=== PATIENT | female | born 1980 | race Caucasian/White ===

== ENCOUNTER 2022-02-07 14:26 | Outpatient (RCR) | payer BC, SELFPAY ==
--- OUTSIDE RECORDS SUMMARY | 2022-01-26 14:49 | XMS_ITS | Continuity of Care Document ---
:1980 Author Allergies, Adverse Reactions, Alerts Allergen Type Severity Reaction Last Updated Verified Status Erythromycin Allergy Unknown GI upset July Yes Active 2017 Sulfa drugs Allergy Mild FAMILY HX July Yes Active 2017 Social History Smoking Status Status Start Date End Date Date of Observat ion Never smoked tobacco August 092017 (finding) 3:48pm Observation Status Observation Response Date of Response History provided by Patient September 06, 2016 2 :00pm Where do you live? Own home/apt September 06, 2016 2 :00pm With whom do you live? 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 Crohn's Duodenitis Malnutrition June 24, 2012 Active Abdominal pain Active Nausea after anesthesia Active Headache Active Proteinuria Active S/P hysterectomy Active S/P hysterectomy Active Medications Medication Status Dose Units Route Directions Qty Days Start End Ins tructions Date Date Cholecalcifer Active 1 DROP OR Daily ol (Vitamin D3) PETER Diphenhydrami Active 25 MG PO Every 3 30 Novembe ne Hcl Hours as r 12th, (Benadryl) 25 needed 2012 Mg CAP 12:30pm Infliximab Active 100 MG IV (Remicade Admin Fee) 10 Mg/Ml SOLN Lactobacillus Active 1 CAP OR Daily (Probiotic) CAP Menaquinone-7 Active Unknow PO (Vitamin K2) n Dose Unknown Strength TAB [place]-3 Fatty Active 1 CAP PO Daily Acids (Fish Oil 1000 Mg) 1 Cap CAP Pediatric Active 1 EA PO Daily Multiple Vitamin W/ (Multivitamin /Iron) CHW Vitamins C & Active 1 EA PO Daily E (Vitamin C) CAP Acetaminophen Disconti 500 MG PO Every 6-8 Febru a (Acetaminophe nued Hours ry n Extra 9, Stren) 500 Mg 2016 TAB 9:08am Acetaminophen Disconti 1 TAB PO Every August Febru a /Hydrocodone nued Hours as , ry Bitart needed for 2017 04, (Hydrocodone- For Pain 9:03am 2017 Acetaminophen Rated 4 Or 9:08am ) 7.5 Mg/325 More Mg TAB Albuterol Disconti 2 PUFF INH Every 4 1 Decemb (Proventil nued Hours as er Hfa) 90 Mcg needed , INH 2019 11:21a m Azathioprine Disconti 100 MG PO Daily 90 Decemb nued er 2019 11:21a m Ethinyl Disconti 1 TAB PO Daily 84 December Decemb Estradiol/Peter nued , er spirenone 2017, (Ocella) 3 4:06pm 2019 Mg/0.03 Mg 11:21a TAB m Ethinyl Disconti 1 TAB PO Daily 84 Decemb Estradiol/Peter nued er spirenone , (Ocella) 3 2017 Mg/0.03 Mg 3:06pm TAB Ethinyl Disconti 1 TAB PO Daily October Estradiol/Peter nued , , spirenone 2016 2017 (Ocella) 3 11:12am 4:06pm Mg/0.03 Mg TAB Ethinyl Disconti 1 TAB PO Daily 84 Decembe ua takes Estradiol/Peter nued r 16, ry cont inuously spirenone 2015 04, w/ a (Ocella) 3 4:36pm 2016 withdraw al Mg/0.03 Mg 9:08am bleed q3 mo. TAB Ethinyl Disconti 1 TAB PO Daily Maymb Estradiol/Peter nued , er spirenone 2014, (Ocella) 3 2:01pm 2015 Mg/0.03 Mg 4:36pm TAB Fluconazole Disconti 150 MG PO Once 2 Decembe Decemb 1 po stat, (Diflucan) nued r , er december rep at in 150 Mg TAB 2017, 3 days 3:37pm 2019 11:21a m Fluconazole Disconti 150 MG PO Once 1 October Decemb (Diflucan) nued 9, er 150 Mg TAB 2016, 11:12am 2017 3:06pm Fluconazole Disconti 150 MG PO Once 1 Decembe Decemb (Diflucan) nued r 22nd, er 150 Mg TAB 2016, 11:31am 2017 3:06pm Hydrocodone-A Disconti 1-2 TAB PO Every 4 May b cetaminophen nued Hours , er ([place]couch) 2013, Mg/325 Mg TAB 3:29pm 2013 10:41a m Hydrocodone-A Disconti 1-2 TAB PO Q4-6H Prn 40 Novembe Sep tem cetaminophen nued r 12th, marion (Vicodin 2011 09, 5) 5 12:30pm 2013 Mg/500 Mg TAB 11:23a m Metronidazole Disconti 1 X PV Qhs X5 70 Novembe Oc jesika 1 APPLICATOR Vaginal nued r , r FULL PV (Metrogel 2013, Vaginal) 0.75 11:50am 2015 % GEL 1:25pm Norgestimate- Disconti 1 TAB PO Daily 28 Octobe Ethinyl nued r Estradiol , (Ortho-Cyclen 2014 ) 0.25 2:01pm Mg/0.035 Mg TAB Omeprazole Disconti 20 MG PO Daily 30 Decemb nued er 2019 11:21a m Omeprazole Disconti 20 MG PO Twice Daily 60 Novembe Sept em (Prilosec) 20 nued Before r , marion Mg CAP Meals 2011 09, 12:30pm 2013 11:23a m Ondansetron Disconti 8 MG PO Every 8 Augustua Hcl (Zofran) nued Hours as , ry 8 Mg TAB needed 2017 04, 9:03am 2016 9:08am Ondansetron Disconti 4 MG SL Q8h Prn Septem as needed for Hcl (Zofran nued marion nausea Odt) 4 Mg TAB 2013 11:23a m Ondansetron Disconti 4 MG PO Every 3 30 Novembe Septem Hcl (Zofran nued Hours as r 12th, marion Odt) 4 Mg needed 2011 09, TABEF 12:30pm 2013 11:23a m Prednisone Disconti 40 MG PO Daily Mayb nued 17, er 2014 02, 3:29pm 2013 10:41a m Prednisone Disconti 60 MG PO Daily 60 Novembe Septem nued r 12th, marion 2011 09, 12:30pm 2013 11:23a m Simethicone Disconti 40 MG PO Every 2 30 Novem Septem nued Hours as r 12th, marion needed 2011 09, 12:30pm 2013 11:23a m Advance Directives Advance Directive Response Recorded Date/Time Does Pt have Health Care No May 31, 015 11:17am Directive? Has patient completed a No August 09, 018 3:48pm Health Care Directive? Insurance Providers Guarantor Tabitha Palomo Address [address] [facility] [address] Contact Info. Home Phone: Payer Policy Id Coverage Id Subscriber's Subscriber Id Effective E xpiration Name Date Date Blue [id number] Tabitha Palomo Oh E [id number] Plan of Treatment Future Tests Future scheduled test information is unavailable Pending Tests Pending diagnostic test information is unavailable Future Visits Future appointment information is unavailable Referrals to Other Providers Reason for Referral Start Provider Provider Contact Provider Address Referral Date Information Misbah Heck Work Phone: [facility] AYUSH ALFORD [address] [place] [address] [phone] Future Procedures Future procedure information is unavailable Future Medications Future medication information is unavailable Patient Instructions Acute Headache (ED) Ondansetron (By mouth, Into the mouth) Hysterectomy (DC)
[2022-02-07 11:05] VITALS: BP 105/60; PULSE 77; RESP 16; TEMP 36; O2SAT 96
== END 2022-02-09 23:59 | disposition home or self-care (01) ==
LOC: CCIC 14:26
PROVIDERS: PCP Family Medicine; Visit Provider Internal Medicine Gastroenterology
DX: K50.90 Crohn's disease, unspecified, without complications (principal)
CPT/HCPCS: 96413; 96415; Q5103; J7050

== ENCOUNTER 2022-05-31 11:21 | Outpatient (CLI) | payer BC, SELFPAY | END 2022-05-31 11:22 | disposition home or self-care (01) | LOC: AMB 06-04 17:16 | PROVIDERS: PCP Family Medicine; Visit Provider Emergency Medicine Emergency Medical Services | DX: S89.92XA Unspecified injury of left lower leg, initial encounter (principal); W00.9XXA Unspecified fall due to ice and snow, initial encounter; Y93.K1 Activity, walking an animal; Y92.414 Local residential or business street as the place of occurrence of the external cause | CPT/HCPCS: A0425; A0427 ==

== ENCOUNTER 2022-05-31 11:56 | Emergency (ER) | payer BC, SELFPAY ==
[2022-05-31 12:03] VITALS: BP 102/48; PULSE 57; RESP 18; TEMP 36.5; O2SAT 100; BMI 25.3
--- NOTE | 2022-05-31 12:19 | CRLHL7_ITS ---
For Patients: As a result of the Cures Act, medical imaging exams and procedure reports are released immediately into your electronic medical record. You may view this report before your referring provider. If you have questions, please contact your health care provider. Indication: Fall Comparison: None available. Technique: Standing AP, lateral, and sunrise views of the left knee were obtained Findings: There are subtle cortical fragment seen on the sunrise view arising from the anterolateral aspect of the femur which may represent early degenerative osteophytes versus small avulsion fracture. There is mild medial compartmental degenerative change. There is a small suprapatellar joint effusion. Impression: Subtle cortical fragment seen on the sunrise view arising from the anterolateral aspect of the femur which may represent degenerative changes versus minimal avulsion fracture. Dictated by Julio Zambrano MD @ 05/31/2022 12:46:37 PM (Electronically Signed)
--- NOTE | 2022-05-31 12:20 | ED_ITS ---
HPI - Extremity Injury (Lower) General Chief Complaint: Extremity Pain/Injury, Lower Stated Complaint: Dislocated L Knee Time Seen by Provider: 05/31/22 12:03 History of Present Illness HPI Narrative: This 41-year-old female comes in with an injury to her left knee. She was walking outside and slipped on some ice and states that she dislocated her kneecap laterally. She comes in by ambulance code she was unable to ambulate. She does not report any other injury and did not hit her head or have loss of consciousness. She states that upon arrival here she felt a pop and thinks that her patella spontaneously relocated. She has not had symptoms like this in the past. Related Data Home Medications Medication Instructions Recorded Confirmed Lactobacillus acidophilus PO DAILY 02/03/22 ascorbate calcium (vitamin C) PO DAILY 02/03/22 cholecalciferol (vitamin D3) PO DAILY 02/03/22 diphenhydramine HCl 25 mg capsule 25 mg PO Q3H PRN 02/03/22 05/30/22 (Benadryl) omega 9-dxz-rvc-fish oil 1,000 mg 1 cap PO DAILY 02/03/22 05/30/22 (120 mg-180 mg) capsule (Fish Oil) vitamin K2 PO 02/03/22 multivitamin (Daily Multi-Vitamin 1 tab PO DAILY 05/30/22 05/30/22 tablet) Previous Rx's Medication Instructions Recorded hydrocodone 5 mg-acetaminophen 325 1 tab PO Q4-6H PRN pain #20 tabs 05/31/22 mg tablet Allergies Allergy/AdvReac Type Severity Reaction Status Date / Time erythromycin base Allergy Unknown Gastrointestinal Verified 05/31/22 12:02 Upset Sulfa (Sulfonamide Allergy Unknown Unknown Verified 05/31/22 12:02 Antibiotics) Review of Systems Status of ROS: Reports: 10 or more systems reviewed and unremarkable except as noted in History and below Narrative: Constitutional: No fevers, no weight gain or loss. Eyes: No discharge. No vision changes. HENT: No congestion, no sore throat, no ear pain. Cardiovascular: No chest pain, no palpitations. Respiratory: No shortness of breath, no wheezes, no cough. Gastrointestinal: No abdominal pain, no vomiting, no diarrhea. Genitourinary: No dysuria, no hematuria. Musculoskeletal: Left knee injury as described above. Skin: No rashes, no pruritis. Neurological: No dizziness, weakness, sensory change, speech change. Endo/Heme/Allergies: No bruising or bleeding. No polydipsia. Pysch: no suicidality, no anxiety, no insomnia. All other systems reviewed and are negative. [facility] Medical History (Updated 05/31/22 @ 13:10 by aDvid Villarreal MD) Crohn disease Social History Smoking Status: Never smoker Do you use any of these nicotine containing products: None Second hand tobacco smoke exposure: No How often do you have a drink containing alcohol: monthly or less How many standard drinks containing alcohol do you have on a typical day: 1 or 2 How often do you have six or more drinks on one occasion: Never AUDIT-C Alcohol total score: 1 Non-prescribed substance use: denies use service: No Exam Narrative: Exam Narrative: Constitutional: Well-developed, well-nourished, no acute distress. HEENT: Normocephalic, atraumatic. Neck: Normal range of motion. Nontender. Supple. Heart: Intact distal pulses. Lungs: No chest discomfort. No wheezes, rhonchi, or rales. Abdomen: Nontender. Back: Normal range of motion. Extremities: Left knee pain. No effusion or deformity is identified. She does have tenderness on the medial aspect of the patella and this is distinctly worse with stressing the patella laterally. Skin: Intact. No rash. Warm. No erythema or pallor. Neurologic: No altered sensation. No weakness. Alert and oriented. Psychiatric: No suicidality. No anxiety or depression. No insomnia. Nursing notes and vitals signs are reviewed. Const: Vital Signs, click to edit/add: Vital Signs - 24 hr 05/31/22 12:03 Temperature 97.7 F Pulse Rate [Pulse Oximeter] 57 L Respiratory Rate 18 Blood Pressure [Le ft Upper Arm] 102/48 L Pulse Oximetry 100 Oxygen Delivery Me thod Room Air Course Vital Signs Vital signs: Initial Vital Signs Temperature 97.7 F 05/31/22 12:03 Temperature Source Temporal Artery Scan 05/31/22 12:03 Pulse Rate 57 L 05/31/22 12:03 Pulse Rhythm 05/31/22 12:03 Respiratory Rate 18 05/31/22 12:03 Blood Pressure 102/48 L 05/31/22 12:03 Blood Pressure Mean 66 05/31/22 12:03 Blood Pressure Position Left Lateral 05/31/22 12:03 Pulse Oximetry 100 05/31/22 12:03 Oxygen Delivery Method 05/31/22 12:03 Vital Signs Temperature 97.7 F 05/31/22 12:03 Pulse Rate 57 L 05/31/22 12:03 Respiratory Rate 18 05/31/22 12:03 Blood Pressure 102/48 L 05/31/22 12:03 Pulse Oximetry 100 05/31/22 12:03 Oxygen Delivery Method 05/31/22 12:03 Temperature 97.7 F 05/31/22 12:03 Pulse Rate 57 L 05/31/22 12:03 Respiratory Rate 18 05/31/22 12:03 Blood Pressure 102/48 L 05/31/22 12:03 Pulse Oximetry 100 05/31/22 12:03 Oxygen Delivery Method 05/31/22 12:03 MDM - Extremity Injury (Lower) MDM Narrative Medical decision making narrative: This patient comes in with an injury to her left knee. She likely had a patella dislocation that spontaneously relocated EN route here. During her stay here she is developing some swelling on the medial aspect of the left patella. X-ray imaging does show normal anatomy except for a small lucency seen on the sunrise view of the left knee that may indicate an avulsion. The patient received a dose of fentanyl EN route here and an oral tablet of [facility] after arrival here. She is able to straighten her leg but is having continued pain and with increased swelling. She was placed in a knee immobilizer and crutches are provided. Arrangements are made for follow-up appointment with orthopedic clinic. She received a prescription for [facility]. Imaging Data XR L Knee: Radiologist's impression: Subtle cortical fragment seen on the sunrise view arising from the anterolateral aspect of the femur which may represent degenerative changes versus minimal avulsion fracture. Discharge Plan Discharge Clinical Impression: Closed patellar dislocation Patient Disposition: Home, Self-Care Condition: Stable Additional Instructions: Wear knee immobilizer and use crutches for ambulating. Take medication as needed and indicated. Follow up with orthopedic clinic appointment as scheduled. Return if worsening. Prescriptions: New hydrocodone-acetaminophen 5-325 mg tablet 1 tab PO Q4-6H PRN (Reason: pain) Qty: 20 0RF No Action cholecalciferol (vitamin D3) PO DAILY diphenhydramine HCl [Benadryl] 25 mg capsule 25 mg PO Q3H PRN Lactobacillus acidophilus PO DAILY vitamin K2 PO omega 9-hic-ttq-fish oil [Fish Oil] 1,000 mg (120 mg-180 mg) capsule 1 cap PO DAILY ascorbate calcium (vitamin C) PO DAILY multivitamin [Daily Multi-Vitamin] Tablet 1 tab PO DAILY Follow Up/Referrals: Zoie Natarajan MD [Primary Care Provider] - Stand Alone Forms: QThru Info Instructions
[2022-05-31] MEDS: HYDROCODONE-ACETAMIN 5-325 MG 1 TAB PO (13:03)
[2022-05-31] MEDS: ONDANSETRON ODT 4 MG TAB PO (13:19)
--- NOTE | 2022-05-31 14:27 | ED.NURSE ---
Knee immobilizer placed on left leg. Patient provided with crutches and was able to ambulate. Ortho follow up appointment made for patient and card given to patient.
== END 2022-05-31 14:38 | disposition home or self-care (01) ==
PROVIDERS: Emergency Provider Emergency Medicine Emergency Medical Services; PCP Family Medicine
DX: S83.005A Unspecified dislocation of left patella, initial encounter (principal); W00.9XXA Unspecified fall due to ice and snow, initial encounter
CPT/HCPCS: 73562; 99284; A9270

== ENCOUNTER 2022-06-12 12:36 | Outpatient (CLI) | payer BC, SELFPAY ==
--- NOTE | 2022-06-12 13:00 | MR_ITS ---
[address] [address] Phone:?[phone] Fax:?[phone] Referring Physician Information: Jorge Burciaga M.D. [id number] [facility] [address] Phone:?[phone] Fax:?[phone] Patient:Allison Palomo D.O.B:?1980 Sex:?Female Phone:?[phone] [facility] MRN:?[id number] Exam Date:?06/12/2022 ? EXAM: MRI OF THE LEFT KNEE CLINICAL INFORMATION: The patient is a 41-year-old with left knee pain. PRIOR SURGERY: None reported. COMPARISON STUDIES: Comparison is made to prior radiographs dated 05/31/2022. TECHNICAL INFORMATION: Imaging was performed on a high-field, 1.5 Cecile MR scanner. Axial proton-density and fat-suppressed T2 imaging of the left knee was performed in addition to sagittal proton-density and fat-suppressed proton- density imaging. Coronal proton-density and coronal STIR imaging was also performed. FINDINGS: Articular/Extraarticular collections: Effusion: Mild to moderate. Popliteal cyst: Small, seen on sagittal series 6 images 9 and 10. Loose bodies: No well-defined intra-articular loose bodies are seen. Subcutaneous and extraarticular soft tissues: Subcutaneous soft tissue edema and/or hemorrhage can be seen circumferentially about the knee on axial series 4 image 17. Osseous structures: There is increased fat-suppressed signal intensity seen involving the central and medial aspects of the patella on axial series 4 image 13. Additionally, increased fat-suppressed signal intensity can be seen along the lateral and anterolateral aspects of the lateral femoral condyle on axial series 4 image 17. The findings are in keeping with broad-based areas of bony contusion related to a lateral patellar dislocation event. No evidence for displaced fracture is identified. Lateral patellar subluxation and tilting can be seen. The TT-TG distance measures 17 mm. The trochlear angle measures 145 degrees. The Insall Salvati ratio is 1.3 (patella rupert) no other bony abnormalities about the knee are present. Ligamentous structures: ACL: Intact and normal in appearance. PCL: Intact and normal in appearance. MCL: Intact and normal in appearance. LCL: Intact and normal in appearance. Posterolateral corner: Intact and normal in appearance. Posteromedial corner: No posteromedial corner soft tissue injury. Semimembranosus and pes anserine tendons demonstrate no tendinopathy or associated bursitis. Extensor mechanism/Patellar retinacular structures: Patellar tendon: Intact, without tendinopathy. Quadriceps tendon: Intact, without tendinopathy. Retinacula: A full-thickness tear of the patellar attachment of the medial patellar retinaculum and medial patellofemoral ligament can be seen on axial series 4 image 13 measuring 8 mm in greatest dimension. Additional strain of the distal aspect of the vastus medialis can be seen on axial series 4 image 10. Hemorrhage and edema can be seen surrounding the remainder of the medial patellar retinacular structures. The lateral retinaculum appears intact. Medial compartment: Medial meniscus: No evidence for medial meniscal tearing can be seen. There is no evidence for parameniscal cyst formation. No meniscocapsular separation injury is identified. Medial femoral condyle: No chondromalacia, chondral defect, or osteochondral abnormality. Medial tibial plateau: No chondromalacia, chondral defect, or osteochondral abnormality. Lateral compartment: Lateral meniscus: No evidence for lateral meniscal tearing is present. No evidence for parameniscal cyst formation can be seen. Lateral femoral condyle: No chondromalacia, chondral defect, or osteochondral abnormality. Lateral tibial plateau: No chondromalacia, chondral defect, or osteochondral abnormality. Patellofemoral compartment: Patella: There is an area of full-thickness or near full-thickness chondral loss along the lateral patellar facet seen on axial series 4 image 13, measuring approximately 12 mm in mediolateral dimension. No other well-defined chondral injuries of the patella can be seen. Trochlea: No chondromalacia, chondral defect, or osteochondral abnormality. Neurovascular: No definite neurovascular abnormalities are seen. CONCLUSION: 1. Findings in keeping with a lateral patellar dislocation event, including broad-based bony injuries of the lateral and anterolateral aspects of the lateral femoral condyle and central and medial aspects of the patella. 2. Tearing of the patellar attachment of the medial patellofemoral ligament and medial patellar retinaculum with strain of the distal vastus medialis. 3. The cruciate and collateral ligaments appear intact. 4. No evidence for medial or lateral meniscal tearing is seen. 5. Mild to moderate knee joint effusion and small popliteal cyst. AEC Electronically signed on 06/12/2022 3:07:00 PM by Vladimir Chau M.D.
== END 2022-06-12 12:37 | disposition home or self-care (01) ==
LOC: MRI 12:37
PROVIDERS: PCP Family Medicine; Visit Provider Orthopaedic Surgery
DX: M25.562 Pain in left knee (principal); S83.015A Lateral dislocation of left patella, initial encounter; S83.8X2A Sprain of other specified parts of left knee, initial encounter; M25.462 Effusion, left knee; M71.22 Synovial cyst of popliteal space [Baker], left knee
CPT/HCPCS: 73721

== ENCOUNTER 2022-09-19 11:00 | Outpatient (RCR) | payer BC, SELFPAY ==
--- NOTE | 2022-03-30 16:24 | ONC.NURNOTE ---
Authorization: User: Adelaide Dodge Poojabrindatee Date: 09/08/21 10:49 Type: Eligibility Determination Note... Request received from [facility] for prior authorization of Inflectra Q5103. Patient carries [facility] as primary insurance. Per BC/[employer]aility Inflectra has been approved from 09/13/2021 through 09/12/2022. Ref #[id number]
[2022-04-04 11:20] VITALS: BP 98/58; PULSE 66; RESP 16; TEMP 36.2; O2SAT 98
[2022-04-04] MEDS: 0.9 % SODIUM CHLORIDE 250 ml 250 ML 40 ML IV (12:00)
--- NOTE | 2022-04-04 12:34 | ONC.NURNOTE ---
Pt took 1000 mg Tylenol and 25 mg Benadryl before arrival as premeds for Inflectra infusion.
[2022-05-30 10:45] VITALS: BP 95/59; PULSE 69; RESP 16; TEMP 35.9; O2SAT 97
[2022-05-30] MEDS: diphenhydrAMINE 25 MG CAPSULE PO (11:00)
[2022-05-30] MEDS: ACETAMINOPHEN 500 MG TABLET 1000 MG PO (11:00)
[2022-05-30 12:51] VITALS: BP 91/56; PULSE 69; RESP 16; TEMP 36.5; O2SAT 99
--- NOTE | 2022-05-30 13:48 | ONC.NURNOTE ---
Pt doing well. At 1200, error with O2 sats charting, pt's O2 sats 99%, not 80%.
[2022-07-25 08:45] VITALS: BP 109/69; PULSE 68; RESP 18; TEMP 36.7; O2SAT 97
[2022-07-25] MEDS: 0.9 % SODIUM CHLORIDE 250 ml 250 ML IV (09:24)
[2022-07-25 10:50] VITALS: BP 104/67; PULSE 74; RESP 16; TEMP 36.5; O2SAT 98
--- NOTE | 2022-08-22 10:52 | URNOTE ---
Request received for authorization for Inflectra (Q5103). Prior authorization approved by [facility] ref# [id number] from 08/21/2022 to 08/20/2023.
[2022-09-19 11:09] VITALS: BP 101/62; PULSE 63; RESP 18; TEMP 35.9; O2SAT 97
== END 2022-10-01 23:59 | disposition home or self-care (01) ==
LOC: CCIC 11:00
PROVIDERS: PCP Family Medicine; Referring Provider Family Medicine; Visit Provider Internal Medicine Gastroenterology
DX: K50.90 Crohn's disease, unspecified, without complications (principal)
CPT/HCPCS: 96413; 96415; Q5103; A9270; J7050

== ENCOUNTER 2023-05-01 11:00 | Outpatient (RCR) | payer BC, SELFPAY ==
[2022-11-14 11:11] VITALS: BP 101/67; PULSE 80; RESP 16; TEMP 36.1; O2SAT 97
[2023-01-09 11:04] VITALS: BP 113/65; PULSE 82; RESP 16; TEMP 36.5; O2SAT 95
[2023-02-27 11:08] VITALS: BP 110/68; PULSE 16; RESP 16; TEMP 36.4; O2SAT 97
[2023-05-01 11:16] VITALS: BP 100/60; PULSE 67; RESP 14; TEMP 36.1; O2SAT 98
== END 2023-05-13 23:59 | disposition home or self-care (01) ==
LOC: CCIC 11:00
PROVIDERS: PCP Family Medicine; Referring Provider Family Medicine; Visit Provider Internal Medicine Gastroenterology
DX: K50.90 Crohn's disease, unspecified, without complications (principal)
CPT/HCPCS: 96413; 96415; Q5103; J7050

== ENCOUNTER 2023-10-29 11:00 | Outpatient (RCR) | payer BC, SELFPAY ==
[2023-06-26 10:53] VITALS: BP 100/66; PULSE 80; RESP 16; TEMP 36.3; O2SAT 97
[2023-06-26] MEDS: 0.9 % SODIUM CHLORIDE 250 ml 250 ML 35 ML IV (11:33)
[2023-06-26] MEDS: SODIUM CHLORIDE 0.9 % (FLUSH) 10 ML SYRINGE IVF (11:35)
[2023-08-23 14:12] LABS: Hepatitis B Surface Antigen* Negative (Negative)
[2023-08-23 14:41] LABS: Hepatitis B Surface Antibody* Positive (Negative)
[2023-08-24 19:23] LABS: Hepatitis B Core Antibodies Negative (Negative)
--- NOTE | 2023-08-27 11:22 | ONC.NURNOTE ---
Reviewed Hep B and Quantiferon Gold results; PA pending.
--- NOTE | 2023-08-31 09:04 | URNOTE ---
Request received for authorization for Inflectra (Q5103). Prior authorization approved by [facility] ref# [id number] from 08/27/2023 to 08/25/2024.
[2023-09-03 12:47] VITALS: BP 95/63; PULSE 99; RESP 16; TEMP 36.3; O2SAT 97
[2023-09-03] MEDS: 0.9 % SODIUM CHLORIDE 250 ml 250 ML 35 ML IV (13:20)
--- NOTE | 2023-09-03 15:14 | ONC.NURNOTE ---
Took premeds at home at 1200. 25mg PO benadry and 1000mg PO tylenol
--- NOTE | 2023-09-03 15:52 | ONC.NURNOTE ---
Faxed Remicade assessment to Dr. Chao. Patient will call us to schedule her next infusion.
[2023-10-29 11:12] VITALS: BP 95/62; PULSE 74; RESP 16; TEMP 36.1; O2SAT 98
[2023-10-29] MEDS: 0.9 % SODIUM CHLORIDE 250 ml 250 ML 35 ML IV (11:26)
[2023-10-29] MEDS: SODIUM CHLORIDE 0.9 % (FLUSH) 10 ML SYRINGE IVF (11:26)
--- NOTE | 2023-10-29 11:27 | ONC.NURNOTE ---
Patient took Benadryl PO 25mg and Tylenol 1000mg PO at home prior to coming in around 1030.
== END 2023-12-23 23:59 | disposition home or self-care (01) ==
LOC: CCIC 11:00
PROVIDERS: Clinical Nurse Specialist; PCP Family Medicine; Referring Provider Family Medicine; Visit Provider Internal Medicine Gastroenterology
DX: K50.90 Crohn's disease, unspecified, without complications (principal)
CPT/HCPCS: 36415; 86480; 86704; 86706; 87340; 96413; 96415; Q5103; J7050

== ENCOUNTER 2024-06-10 11:00 | Outpatient (RCR) | payer BC, SELFPAY ==
[2023-12-24 10:50] VITALS: BP 100/64; PULSE 60; RESP 16; TEMP 36.6; O2SAT 96
[2023-12-24] MEDS: 0.9 % SODIUM CHLORIDE 250 ml 250 ML 35 ML IV (11:23)
[2023-12-24 12:15] VITALS: BP 102/66; PULSE 77; RESP 16; TEMP 36.6; O2SAT 97
[2023-12-24 12:30] VITALS: BP 101/65; PULSE 84; RESP 16; TEMP 36.6; O2SAT 97
[2024-02-18 12:38] VITALS: BP 106/64; PULSE 81; RESP 16; TEMP 36.7; O2SAT 96
[2024-04-15 11:30] VITALS: BP 108/66; PULSE 73; RESP 16; TEMP 36.6; O2SAT 97
[2024-06-10 11:03] VITALS: BP 119/73; PULSE 72; RESP 16; TEMP 35.7; O2SAT 97
[2024-06-10 11:07] VITALS: BP 119/73; PULSE 72; RESP 16; TEMP 35.7; O2SAT 97
== END 2024-06-21 23:59 | disposition home or self-care (01) ==
LOC: CCIC 11:00
PROVIDERS: PCP Family Medicine; Referring Provider Family Medicine; Visit Provider Internal Medicine Gastroenterology
DX: K50.90 Crohn's disease, unspecified, without complications (principal)
CPT/HCPCS: 96361; 96366; 96413; 96415; Q5103; J7050

== ENCOUNTER 2025-01-20 11:00 | Outpatient (RCR) | payer BC, SELFPAY ==
[2024-08-05 08:22] VITALS: BP 103/68; PULSE 70; RESP 16; TEMP 36.7; O2SAT 97
--- NOTE | 2024-09-10 10:00 | URNOTE ---
Addendum entered and electronically signed by Sugey Montelongo APRN 02/27/25 12:08: Received new orders from Dr. Chao 02/24/25. Due to weight change, dose increased from 700mg to 800mg. Dosing is 10 mg/kg q 8 weeks. Discussed with Kinza Felix on 02/27/25. PA does not need to be updated with dose change based on her review. Original Note: Request received for authorization for Inflectra (Q5103). Prior authorization approved by [facility] ref# [id number] from 09/05/2024 to 09/04/2025.
[2024-09-30 10:51] VITALS: BP 102/64; PULSE 79; RESP 16; TEMP 36.6; O2SAT 99
[2024-09-30] MEDS: ACETAMINOPHEN 500 MG TABLET 1000 MG PO (11:04)
[2024-09-30] MEDS: diphenhydrAMINE 25 MG CAPSULE PO (11:05)
[2024-09-30] MEDS: 0.9 % SODIUM CHLORIDE 500 ML 20 ML IV (11:30)
[2024-09-30 13:43] VITALS: BP 91/56
[2024-09-30 14:27] VITALS: BP 94/59
[2024-11-25 10:57] VITALS: BP 106/66; PULSE 63; RESP 18; TEMP 35.7; O2SAT 100
[2024-11-25] MEDS: 0.9 % SODIUM CHLORIDE 500 ML 20 ML IV (11:29)
--- NOTE | 2024-11-25 11:30 | ONC.NURNOTE ---
Patient took 1000mg Tylenol PO and 25mg Benadryl PO at home at 1030 today for premedications.
[2025-01-20 10:54] VITALS: BP 105/67; PULSE 70; RESP 18; TEMP 35.9; O2SAT 97
== END 2025-02-01 23:59 | disposition home or self-care (01) ==
LOC: CCIC 11:00
PROVIDERS: PCP Family Medicine; Referring Provider Family Medicine; Visit Provider Clinical Nurse Specialist
DX: K50.90 Crohn's disease, unspecified, without complications (principal)
CPT/HCPCS: 96413; 96415; Q5103; A9270; J7030; J7050